=== PATIENT | female | born 1960 | race Caucasian/White ===

== ENCOUNTER 2019-01-12 16:29 | Inpatient (IN) | payer OTHER ==
[2019-01-12] MEDS ORDERED: IODIXANOL LOCM 100 ML BTL (16:52)
[2019-01-12] MEDS ORDERED: SOD CHLORIDE 0.9% 100 ML (16:52)
[2019-01-12 17:03] LABS: ADD MAN DIFF? NO
[2019-01-12 17:11] LABS: WHITE BLOOD COUNT 4.1 10^3/ul (4.8-10.8)
[2019-01-12 17:11] LABS: BASOPHILS % 0.7 % (0.0-2.0); EOSINOPHILS # 0.1 10^3/ul (0.0-0.5); EOSINOPHILS % 2.2 % (0.0-7.0); HEMATOCRIT 40.9 % (37.0-47.0); HEMOGLOBIN 13.7 g/dl (12.0-16.0); LYMPHOCYTES # 1.2 10^3/ul (0.8-2.9); LYMPHOCYTES % 29.1 % (15.0-51.0); MEAN CORPUSCULAR HEMOGLOBIN 29.3 pg (29.0-33.0); MEAN CORPUSCULAR HGB CONC 33.5 g/dl (32.0-37.0); MEAN CORPUSCULAR VOLUME 87.6 fl (82.0-101.0); MONOCYTE # 0.5 10^3/ul (0.3-0.9); MONOCYTES % 12.5 % (0.0-11.0); NEUTROPHIL # 2.3 10^3/ul (1.6-7.5); PLATELET COUNT 228 10^3/UL (140-415); RED BLOOD COUNT 4.67 10^6/ul (4.20-5.40); RED CELL DISTRIBUTION WIDTH 13.1 % (11.5-14.5)
[2019-01-12 17:26] LABS: HEMOGLOBIN A1C 5.4 % (0-5.9)
[2019-01-12 17:28] LABS: ANION GAP 7 (5-13); BLOOD UREA NITROGEN 7 mg/dl (7-20); CALCIUM 9.4 mg/dl (8.4-10.2); CARBON DIOXIDE 27 mmol/L (21-31); CHLORIDE 105 mmol/L (97-110); CHOLESTEROL 184 mg/dl (100-200); CREATINE KINASE 262 IU/L (23-200); CREATININE 0.47 mg/dl (0.44-1.00); Estimated GFR > 60 mL/min (>60); GLUCOSE 157 mg/dl (70-220); HDL CHOLESTEROL 89 mg/dl (35-98); LDL CHOLESTEROL,CALCULATED 81 mg/dl; POTASSIUM 3.7 mmol/L (3.5-5.1); SODIUM 139 mmol/L (135-144); TRIGLYCERIDES 70 mg/dl (0-149)
[2019-01-12 17:30] LABS: INR 0.93; PROTIME 12.6 Sec (11.9-14.9)
[2019-01-12 17:31] LABS: PARTIAL THROMBOPLASTIN TIME 26.1 Sec (23.0-35.0)
[2019-01-12 17:36] LABS: ETHANOL < 10.0 mg/dl (0-0)
[2019-01-12 17:40] LABS: CK INDEX 0.6; CK-MB 1.63 ng/ml (0.0-2.4); TROPONIN-I < 0.012 ng/ml (0.000-0.120)
[2019-01-12 17:49] LABS: ADD UMIC YES; UR ASCORBIC ACID NEGATIVE (NEGATIVE); UR BILIRUBIN (Dip) NEGATIVE (NEGATIVE); UR BLOOD (Dip) 1+ mg/dL (NEGATIVE); UR CLARITY CLEAR (CLEAR); UR COLOR YELLOW (YELLOW); UR GLUCOSE (Dip) NEGATIVE (NEGATIVE); UR KETONES (Dip) NEGATIVE (NEGATIVE); UR LEUKOCYTE ESTERASE (Dip) NEGATIVE Leu/ul (NEGATIVE); UR NITRITE (Dip) NEGATIVE (NEGATIVE); UR RBC 5 /HPF (0-5); UR SPECIFIC GRAVITY (Dip) 1.023 (1.003-1.030); UR TOTAL PROTEIN (Dip) NEGATIVE (NEGATIVE); UR UROBILINOGEN (Dip) NEGATIVE (NEGATIVE); UR WBC 1 /HPF (0-5)
[2019-01-12] MEDS: IOHEXOL 100 ML (18:02)
[2019-01-12] MEDS: SOD CHLORIDE 0.9% 100 ML (18:02)
[2019-01-12] MEDS: ASPIRIN 81 MG TAB PO (18:05)
[2019-01-12 18:08] LABS: AMPHETAMINE/METHAMPHETAMINE Negative (NEGATIVE); BARBITURATES Negative (NEGATIVE); BENZODIAZEPINES Negative (NEGATIVE); CANNABINOIDS Negative (NEGATIVE); COCAINE Negative (NEGATIVE); OPIATES Negative (NEGATIVE)
[2019-01-12] MEDS: ENOXAPARIN 60 MG/0.6 ML SYG SC (19:04)
[2019-01-12] MEDS ORDERED: hydrALAzine 20 MG INJ IV (19:30)
[2019-01-12] MEDS ORDERED: morphine 2 MG INJ IV (19:30)
[2019-01-12] MEDS ORDERED: LORAZEPAM 2 MG INJ IV (19:30)
[2019-01-12] MEDS ORDERED: ACETAMINOPHEN 325 MG TAB PO ×2 (19:30)
[2019-01-12] MEDS ORDERED: NITROGLYCERIN (SL) 0.4 MG TAB SL (19:30)
[2019-01-12] MEDS ORDERED: MAGNESIUM HYDROXIDE 30ML CUP PO (19:30)
[2019-01-12] MEDS ORDERED: HYDROCODONE/APAP (5/325) TAB PO (19:30)
[2019-01-12] MEDS ORDERED: ALBUTEROL/IPRATROPIUM (NEB) 3 ML AMP HHN (19:30)
[2019-01-12] MEDS ORDERED: NACL 0.9% 3 ML SYG IV (19:30)
[2019-01-12] MEDS ORDERED: ONDANSETRON 4 MG INJ IV ×2 (19:30)
[2019-01-12 19:52] LABS: INR 0.97
[2019-01-12 19:53] LABS: PARTIAL THROMBOPLASTIN TIME 27.5 Sec (23.0-35.0)
[2019-01-12 20:08] LABS: FREE T4 (FREE THYROXINE) 1.22 ng/dl (0.78-2.44)
[2019-01-12] MEDS: SOD CHLORIDE 0.45% 1,000 ML IV (22:14)
[2019-01-12] MEDS: ATORVASTATIN 80 MG TAB PO (22:14)
[2019-01-13 06:49] LABS: ADD MAN DIFF? NO
[2019-01-13 06:52] LABS: WHITE BLOOD COUNT 4.3 10^3/ul (4.8-10.8)
[2019-01-13 06:52] LABS: BASOPHILS % 0.9 % (0.0-2.0); EOSINOPHILS # 0.2 10^3/ul (0.0-0.5); EOSINOPHILS % 4.6 % (0.0-7.0); HEMATOCRIT 38.5 % (37.0-47.0); HEMOGLOBIN 12.9 g/dl (12.0-16.0); LYMPHOCYTES # 1.2 10^3/ul (0.8-2.9); LYMPHOCYTES % 27.3 % (15.0-51.0); MEAN CORPUSCULAR HEMOGLOBIN 28.9 pg (29.0-33.0); MEAN CORPUSCULAR HGB CONC 33.5 g/dl (32.0-37.0); MEAN CORPUSCULAR VOLUME 86.1 fl (82.0-101.0); MEAN PLATELET VOLUME 9.9 fl (7.4-10.4); MONOCYTE # 0.5 10^3/ul (0.3-0.9); MONOCYTES % 11.5 % (0.0-11.0); NEUTROPHIL # 2.4 10^3/ul (1.6-7.5); NEUTROPHILS % 55.7 % (39.0-77.0); PLATELET COUNT 242 10^3/UL (140-415); RED BLOOD COUNT 4.47 10^6/ul (4.20-5.40); RED CELL DISTRIBUTION WIDTH 13.2 % (11.5-14.5)
[2019-01-13 07:21] LABS: ANION GAP 6 (5-13); BLOOD UREA NITROGEN 9 mg/dl (7-20); CALCIUM 8.8 mg/dl (8.4-10.2); CARBON DIOXIDE 27 mmol/L (21-31); CHLORIDE 107 mmol/L (97-110); CREATININE 0.46 mg/dl (0.44-1.00); Estimated GFR > 60 mL/min (>60); GLUCOSE 92 mg/dl (70-220); POTASSIUM 3.9 mmol/L (3.5-5.1); SODIUM 140 mmol/L (135-144)
[2019-01-13 07:30] LABS: CHOL/HDL RATIO 2.1 RATIO; HDL CHOLESTEROL 76 mg/dl (35-98); LDL CHOLESTEROL,CALCULATED 76 mg/dl; TRIGLYCERIDES 63 mg/dl (0-149)
[2019-01-13 07:30] LABS: CHOLESTEROL 165 mg/dl (100-200)
[2019-01-13 07:40] LABS: HEMOGLOBIN A1C 5.3 % (0-5.9)
[2019-01-13] MEDS: SOD CHLORIDE 0.45% 1,000 ML IV ×3 (08:26→21:55)
[2019-01-13] MEDS: ASPIRIN (EC) 81 MG TAB PO (08:27)
[2019-01-13] MEDS: ENOXAPARIN 80 MG/0.8 ML SYG SC ×2 (08:32→21:00)
[2019-01-13] MEDS ORDERED: ASPIRIN (EC) 325 MG TAB PO (09:00)
[2019-01-13 14:43] LABS: ERYTHROCYTE SEDIMENTATION RATE 10 mm/Hr (0-30)
[2019-01-13 14:46] LABS: RAPID PLASMA REAGIN NONREACTIVE (NR)
[2019-01-13] MEDS: ATORVASTATIN 40 MG TAB PO (20:43)
[2019-01-14 06:54] LABS: ADD MAN DIFF? NO
[2019-01-14 07:04] LABS: WHITE BLOOD COUNT 4.4 10^3/ul (4.8-10.8)
[2019-01-14 07:04] LABS: BASOPHILS % 0.9 % (0.0-2.0); EOSINOPHILS # 0.2 10^3/ul (0.0-0.5); EOSINOPHILS % 4.3 % (0.0-7.0); HEMOGLOBIN 12.6 g/dl (12.0-16.0); LYMPHOCYTES # 1.3 10^3/ul (0.8-2.9); LYMPHOCYTES % 29.3 % (15.0-51.0); MEAN CORPUSCULAR HEMOGLOBIN 29.7 pg (29.0-33.0); MEAN CORPUSCULAR HGB CONC 34.1 g/dl (32.0-37.0); MEAN CORPUSCULAR VOLUME 87.3 fl (82.0-101.0); MEAN PLATELET VOLUME 10.2 fl (7.4-10.4); MONOCYTE # 0.4 10^3/ul (0.3-0.9); MONOCYTES % 9.9 % (0.0-11.0); NEUTROPHIL # 2.5 10^3/ul (1.6-7.5); NEUTROPHILS % 55.4 % (39.0-77.0); PLATELET COUNT 239 10^3/UL (140-415); RED BLOOD COUNT 4.24 10^6/ul (4.20-5.40); RED CELL DISTRIBUTION WIDTH 12.9 % (11.5-14.5)
[2019-01-14 07:36] LABS: ANION GAP 8 (5-13); BLOOD UREA NITROGEN 9 mg/dl (7-20); CALCIUM 8.7 mg/dl (8.4-10.2); CARBON DIOXIDE 27 mmol/L (21-31); CHLORIDE 104 mmol/L (97-110); CREATININE 0.42 mg/dl (0.44-1.00); Estimated GFR > 60 mL/min (>60); GLUCOSE 91 mg/dl (70-220); POTASSIUM 3.8 mmol/L (3.5-5.1); SODIUM 139 mmol/L (135-144)
[2019-01-14] MEDS: SOD CHLORIDE 0.45% 1,000 ML IV (08:37)
[2019-01-14] MEDS: DOCUSATE SODIUM 100 MG CAP PO (08:37)
[2019-01-14] MEDS: ENOXAPARIN 80 MG/0.8 ML SYG SC ×2 (08:47→20:58)
[2019-01-14] MEDS: ATORVASTATIN 40 MG TAB PO (20:30)
[2019-01-15 06:15] LABS: ADD MAN DIFF? NO
[2019-01-15 06:20] LABS: WHITE BLOOD COUNT 4.8 10^3/ul (4.8-10.8)
[2019-01-15 06:20] LABS: BASOPHILS % 0.8 % (0.0-2.0); EOSINOPHILS # 0.2 10^3/ul (0.0-0.5); HEMATOCRIT 41.5 % (37.0-47.0); HEMOGLOBIN 13.8 g/dl (12.0-16.0); LYMPHOCYTES # 1.5 10^3/ul (0.8-2.9); LYMPHOCYTES % 31.3 % (15.0-51.0); MEAN CORPUSCULAR HEMOGLOBIN 28.9 pg (29.0-33.0); MEAN CORPUSCULAR HGB CONC 33.3 g/dl (32.0-37.0); MEAN CORPUSCULAR VOLUME 86.8 fl (82.0-101.0); MEAN PLATELET VOLUME 9.9 fl (7.4-10.4); MONOCYTE # 0.4 10^3/ul (0.3-0.9); MONOCYTES % 8.5 % (0.0-11.0); NEUTROPHIL # 2.6 10^3/ul (1.6-7.5); NEUTROPHILS % 54.2 % (39.0-77.0); PLATELET COUNT 267 10^3/UL (140-415); RED BLOOD COUNT 4.78 10^6/ul (4.20-5.40); RED CELL DISTRIBUTION WIDTH 12.8 % (11.5-14.5)
[2019-01-15 06:43] LABS: ANION GAP 5 (5-13); BLOOD UREA NITROGEN 10 mg/dl (7-20); CALCIUM 9.3 mg/dl (8.4-10.2); CARBON DIOXIDE 31 mmol/L (21-31); CHLORIDE 105 mmol/L (97-110); CREATININE 0.43 mg/dl (0.44-1.00); Estimated GFR > 60 mL/min (>60); GLUCOSE 93 mg/dl (70-220); POTASSIUM 4.4 mmol/L (3.5-5.1); SODIUM 141 mmol/L (135-144)
[2019-01-15] MEDS: ENOXAPARIN 80 MG/0.8 ML SYG SC ×2 (09:23→20:19)
[2019-01-15] MEDS: ATORVASTATIN 40 MG TAB PO (20:07)
[2019-01-16 08:38] LABS: ADD MAN DIFF? NO
[2019-01-16 08:50] LABS: BASOPHIL # 0.1 10^3/ul (0.0-0.1); EOSINOPHILS # 0.2 10^3/ul (0.0-0.5); EOSINOPHILS % 4.4 % (0.0-7.0); HEMATOCRIT 40.3 % (37.0-47.0); HEMOGLOBIN 13.7 g/dl (12.0-16.0); LYMPHOCYTES # 1.3 10^3/ul (0.8-2.9); LYMPHOCYTES % 27.1 % (15.0-51.0); MEAN CORPUSCULAR HEMOGLOBIN 29.2 pg (29.0-33.0); MEAN CORPUSCULAR VOLUME 85.9 fl (82.0-101.0); MEAN PLATELET VOLUME 10.2 fl (7.4-10.4); MONOCYTE # 0.5 10^3/ul (0.3-0.9); MONOCYTES % 9.6 % (0.0-11.0); NEUTROPHIL # 2.8 10^3/ul (1.6-7.5); NEUTROPHILS % 57.7 % (39.0-77.0); PLATELET COUNT 266 10^3/UL (140-415); RED BLOOD COUNT 4.69 10^6/ul (4.20-5.40); RED CELL DISTRIBUTION WIDTH 12.9 % (11.5-14.5)
[2019-01-16 08:50] LABS: WHITE BLOOD COUNT 4.8 10^3/ul (4.8-10.8)
[2019-01-16] MEDS: ENOXAPARIN 80 MG/0.8 ML SYG SC (09:05)
[2019-01-16 09:23] LABS: ANION GAP 10 (5-13); BLOOD UREA NITROGEN 10 mg/dl (7-20); CALCIUM 9.1 mg/dl (8.4-10.2); CARBON DIOXIDE 28 mmol/L (21-31); CHLORIDE 103 mmol/L (97-110); CREATININE 0.43 mg/dl (0.44-1.00); Estimated GFR > 60 mL/min (>60); GLUCOSE 82 mg/dl (70-220); POTASSIUM 4.1 mmol/L (3.5-5.1); SODIUM 141 mmol/L (135-144)
== END 2019-01-16 12:40 | disposition still patient (30) | DRG 64 ==
LOC: TEL 01-14 21:41 → E/R 16:29 → TEL 19:11
DX: I63.9 Cerebral infarction, unspecified (principal); I26.99 Other pulmonary embolism without acute cor pulmonale; G81.94 Hemiplegia, unspecified affecting left nondominant side
CPT/HCPCS: 36415; 70450; 70496; 70498; 70551; 71045; 71275; 80048; 80061; 80307; 81001; 82550; 82553; 83036; 83735; 84100; 84439; 84443; 84484; 85025; 85610; 85651; 85730; 86592; 92610; 93005; 93306; 93880; 93970; 96372; 97161; 99285-25

== ENCOUNTER 2019-04-04 15:33 | Emergency (ER) | payer OTHER ==
[2019-04-04 19:18] LABS: ADD MAN DIFF? NO
[2019-04-04 19:20] LABS: WHITE BLOOD COUNT 8.8 10^3/ul (4.8-10.8)
[2019-04-04 19:20] LABS: BASOPHILS % 0.5 % (0.0-2.0); EOSINOPHILS % 0.3 % (0.0-7.0); HEMATOCRIT 37.9 % (37.0-47.0); HEMOGLOBIN 12.5 g/dl (12.0-16.0); LYMPHOCYTES # 1.2 10^3/ul (0.8-2.9); MEAN CORPUSCULAR HEMOGLOBIN 28.8 pg (29.0-33.0); MEAN CORPUSCULAR VOLUME 87.3 fl (82.0-101.0); MEAN PLATELET VOLUME 9.6 fl (7.4-10.4); MONOCYTE # 0.5 10^3/ul (0.3-0.9); NEUTROPHIL # 6.9 10^3/ul (1.6-7.5); PLATELET COUNT 250 10^3/UL (140-415); RED BLOOD COUNT 4.34 10^6/ul (4.20-5.40); RED CELL DISTRIBUTION WIDTH 13.1 % (11.5-14.5)
[2019-04-04] MEDS: FENTAnyl 50 MCG/ML VIAL IV (19:22)
[2019-04-04] MEDS: SOD CHLORIDE 0.9% 500 ML IV (19:22)
[2019-04-04 19:38] LABS: ANION GAP 9 (5-13); BLOOD UREA NITROGEN 12 mg/dl (7-20); CALCIUM 8.9 mg/dl (8.4-10.2); CARBON DIOXIDE 30 mmol/L (21-31); CHLORIDE 100 mmol/L (97-110); CREATININE 0.51 mg/dl (0.44-1.00); Estimated GFR > 60 mL/min (>60); GLUCOSE 141 mg/dl (70-220); POTASSIUM 4.1 mmol/L (3.5-5.1); SODIUM 139 mmol/L (135-144)
[2019-04-04 19:50] LABS: TROPONIN-I < 0.012 ng/ml (0.000-0.120)
== END 2019-04-04 21:44 | disposition home or self-care (01) ==
LOC: E/R 15:33
DX: R55 Syncope and collapse (principal); S20.212A Contusion of left front wall of thorax, initial encounter; W01.198A Fall on same level from slipping, tripping and stumbling with subsequent striking against other object, initial encounter; Y92.9 Unspecified place or not applicable; Z79.01 Long term (current) use of anticoagulants; Z86.73 Personal history of transient ischemic attack (TIA), and cerebral infarction without residual deficits
CPT/HCPCS: 36415; 71045; 71100; 80048; 82962; 84484; 85025; 93005; 96374; 99285-25